=== PATIENT | female | born 1975 | race African-American/Black ===

== ENCOUNTER 2018-01-22 06:43 | Emergency (ER) | payer MEDICARE, MEDICAID ==
[2018-01-22] MEDS: NORCO, ANEXSIA 5/325MG TABLET (HYDROcodone/ACETAMINOPHEN) PO (07:52)
== END 2018-01-22 08:50 | disposition home or self-care (01) ==
LOC: M ED 06:43
DX: I10 Essential (primary) hypertension (principal); Z88.0 Allergy status to penicillin
CPT/HCPCS: 73060

== ENCOUNTER 2018-03-13 13:37 | Outpatient (RCR) | payer MEDICARE | END 2018-03-30 | LOC: M PT 13:37 | DX: Z51.89 Encounter for other specified aftercare (principal); M54.12 Radiculopathy, cervical region; M50.30 Other cervical disc degeneration, unspecified cervical region; M50.20 Other cervical disc displacement, unspecified cervical region | CPT/HCPCS: 97110 ==

== ENCOUNTER 2018-04-05 12:35 | Outpatient (RCR) | payer MEDICARE | END 2018-04-29 | LOC: M PT 12:35 | DX: Z47.89 Encounter for other orthopedic aftercare (principal); M54.12 Radiculopathy, cervical region; M50.30 Other cervical disc degeneration, unspecified cervical region; M50.20 Other cervical disc displacement, unspecified cervical region | CPT/HCPCS: 97110 ==

== ENCOUNTER → 2019-05-30 | Outpatient (REF) | payer MEDICARE ==
[~2019-05-30] MED LIST: ALPR2TAB3 PO; HYDR-3715 PO
[2019-05-30 19:50] LABS: CHLAMYDIA DNA AMPLIFICATION NEGATIVE (NEGATIVE); GC DNA AMPLIFICATION NEGATIVE (NEGATIVE)
[2019-06-02 14:07] LABS: HPV HYBRID CAPTURE II Negative (Negative)
== END ==
LOC: M LAB REF 17:05
PROVIDERS: ATTEND Advanced Practice Midwife
DX: Z11.3 Encounter for screening for infections with a predominantly sexual mode of transmission (principal); Z12.4 Encounter for screening for malignant neoplasm of cervix
CPT/HCPCS: 87624; 87661; G0123

== ENCOUNTER → 2019-06-06 | Outpatient (REF) | payer MEDICARE ==
[2019-06-06 10:10] LABS: HEMATOCRIT 35.2 % (36.0-47.0); HEMOGLOBIN 10.8 g/dl (12.0-15.5); MEAN CORPUSCULAR HEMOGLOBIN 21.9 pg (27.0-33.0); MEAN CORPUSCULAR HGB CONC 30.7 g/dl (32.0-36.5); MEAN CORPUSCULAR VOLUME 71.3 fl (80.0-96.0); PLATELET COUNT, AUTOMATED 586 10^3/uL (150-450); RED BLOOD COUNT 4.94 10^6/uL (4.00-5.40); WHITE BLOOD COUNT 10.1 10^3/uL (4.0-10.0)
[2019-06-06 10:46] LABS: FREE T4 1.02 NG/DL (0.76-1.46)
[2019-06-07 06:30] LABS: HIV 1&2 SCREEN CENTAUR NEGATIVE (NEGATIVE)
== END ==
LOC: M LABDRAWP 08:40
PROVIDERS: ATTEND Advanced Practice Midwife
DX: N92.0 Excessive and frequent menstruation with regular cycle (principal); Z11.3 Encounter for screening for infections with a predominantly sexual mode of transmission

== ENCOUNTER → 2019-06-06 | Outpatient (CLI) | payer MEDICARE ==
--- NOTE | 2019-06-06 09:40 | REPMRS ---
Patient History The patient states she had a clinical breast exam in 04/2019. Family history of breast cancer at age 50 or over in maternal grandmother. No Hormone Replacement Therapy 3D TOMOSYNTHESIS WAS PERFORMED. [facility] lifetime risk for breast cancer is 13.5%. Digital Woman Screen Mammo: June 06, 2019 - Exam #: [id number] Bilateral CC and MLO view(s) were taken. Technologist: Leigh Zhang, Technologist No prior studies available for comparison. FINDINGS: The breast tissue is extremely dense which could obscure a lesion on mammography. There is no evidence of cancer on this mammogram. Assessment: BI-RADS/ACR category 2 mammogram. Benign Findings. Recommendation Routine screening mammogram of both breasts in 1 year (for women over age 40). This mammogram was interpreted with the aid of an FDA-approved computer-aided dectection system. Electronically Signed By: Lalo Caballero MD 06/06/19 0903
== END ==
LOC: M WHC 08:08
PROVIDERS: ATTEND Nurse Practitioner Family
DX: Z12.31 Encounter for screening mammogram for malignant neoplasm of breast (principal); N92.0 Excessive and frequent menstruation with regular cycle; Z11.3 Encounter for screening for infections with a predominantly sexual mode of transmission; Z80.3 Family history of malignant neoplasm of breast

== ENCOUNTER → 2019-08-04 | Outpatient (CLI) | payer MEDICARE ==
[2019-08-04 18:30] LABS: ALBUMIN 3.7 GM/DL (3.2-5.2); ALT/SGPT 12 U/L (12-78); BILIRUBIN,TOTAL 0.4 MG/DL (0.2-1.0); BLOOD UREA NITROGEN 7 MG/DL (7-18); CALCIUM LEVEL 8.9 MG/DL (8.5-10.1); CARBON DIOXIDE LEVEL 26 MEQ/L (21-32); CHLORIDE LEVEL 110 MEQ/L (98-107); CHOLESTEROL LEVEL 129 MG/DL (<200); CHOLESTEROL RISK RATIO 3.486 (<5); CREATININE FOR GFR 0.79 MG/DL (0.55-1.30); FREE T4 1.03 NG/DL (0.76-1.46); GLOMERULAR FILTRATION RATE > 60.0 (>58); GLUCOSE, FASTING 89 MG/DL (70-100); HDL CHOLESTEROL 37 MG/DL (>40); LDL CHOLESTEROL 70 MG/DL (<100); NON-HDL-C 92 MG/DL; POTASSIUM SERUM 4.5 MEQ/L (3.5-5.1); SODIUM LEVEL 142 MEQ/L (136-145); THYROID STIMULATING HORMONE 0.906 uIU/ML (0.358-3.740); TRIGLYCERIDES LEVEL 109 MG/DL (<150)
[2019-08-04 19:01] LABS: HEMOGLOBIN A1c 5.5 %
[2019-08-06 11:19] LABS: VITAMIN B12 LEVEL 568 PG/ML (247-911)
== END ==
LOC: M WUC 08:13
PROVIDERS: ATTEND Nurse Practitioner Family
DX: Z00.00 Encounter for general adult medical examination without abnormal findings (principal); E07.9 Disorder of thyroid, unspecified; E78.00 Pure hypercholesterolemia, unspecified

== ENCOUNTER → 2021-08-04 | Outpatient (CLI) | payer MEDICARE, MEDICAID ==
[2021-08-04 13:37] LABS: BASO # 0.1 10^3/uL (0.0-0.2); EOS # 0.2 10^3/uL (0.0-0.5); EOS % 2.3 % (0.0-3.0); HEMATOCRIT 38.2 % (36.0-47.0); HEMOGLOBIN 12.4 g/dl (12.0-15.5); LYMPH # 2.2 10^3/uL (1.5-5.0); LYMPH % 23.1 % (24.0-44.0); MEAN CORPUSCULAR HEMOGLOBIN 27.9 pg (27.0-33.0); MEAN CORPUSCULAR HGB CONC 32.5 g/dl (32.0-36.5); MONO # 0.7 10^3/uL (0.0-0.8); MONO % 6.8 % (2.0-8.0); NEUTROPHILS # 6.3 10^3/uL (1.5-8.5); NEUTROPHILS % 66.3 % (36.0-66.0); PLATELET COUNT, AUTOMATED 437 10^3/uL (150-450); RED BLOOD COUNT 4.44 10^6/uL (4.00-5.40); WHITE BLOOD COUNT 9.5 10^3/uL (4.0-10.0)
[2021-08-04 17:45] LABS: ALBUMIN 3.6 GM/DL (3.2-5.2); ALT/SGPT 16 U/L (12-78); BILIRUBIN,TOTAL 0.4 MG/DL (0.2-1.0); BLOOD UREA NITROGEN 10 MG/DL (7-18); CARBON DIOXIDE LEVEL 27 MEQ/L (21-32); CHLORIDE LEVEL 111 MEQ/L (98-107); CHOLESTEROL LEVEL 168 MG/DL (<200); GLOMERULAR FILTRATION RATE > 60.0 (>58); GLUCOSE, FASTING 83 MG/DL (70-100); HDL CHOLESTEROL 56 MG/DL (>40); LDL CHOLESTEROL 99 MG/DL (<100); NON-HDL-C 112 MG/DL; POTASSIUM SERUM 4.3 MEQ/L (3.5-5.1); SODIUM LEVEL 141 MEQ/L (136-145); TOTAL 25(OH) VITAMIN D 34.7 NG/ML (30.0-100.0); TOTAL PROTEIN 6.6 GM/DL (6.4-8.2); TRIGLYCERIDES LEVEL 64 MG/DL (<150)
== END ==
LOC: M PLALAB 10:29
PROVIDERS: ATTEND Nurse Practitioner Family
DX: E55.9 Vitamin D deficiency, unspecified (principal); F41.1 Generalized anxiety disorder; Z13.1 Encounter for screening for diabetes mellitus; Z13.220 Encounter for screening for lipoid disorders; Z79.899 Other long term (current) drug therapy
CPT/HCPCS: 36415; 80053; 80061; 82306; 83036; 84439; 84443; 85025; G0463

== ENCOUNTER → 2024-11-02 | Outpatient (REF) | payer MEDICARE, MEDICAID ==
[2024-11-02 13:50] LABS: HEMATOCRIT 34.4 % (36.0-47.0); HEMOGLOBIN 10.8 g/dl (12.0-15.5); MEAN CORPUSCULAR HEMOGLOBIN 24.1 pg (27.0-33.0); MEAN CORPUSCULAR HGB CONC 31.4 g/dl (32.0-36.5); MEAN CORPUSCULAR VOLUME 76.8 fl (80.0-96.0); PLATELET COUNT, AUTOMATED 413 10^3/uL (150-450); RED BLOOD COUNT 4.48 10^6/uL (4.00-5.40)
[2024-11-02 14:11] LABS: HEMOGLOBIN A1c 5.2 % (4.0-6.0)
[2024-11-02 14:17] LABS: ALBUMIN 3.7 G/DL (3.2-5.2); ALKALINE PHOSPHATASE 61 U/L (35-104); ALT/SGPT 27 U/L (7.0-40); AST/SGOT 22 U/L (<34); BILIRUBIN,TOTAL 0.7 MG/DL (0.3-1.2); BLOOD UREA NITROGEN 8 MG/DL (9-23); CARBON DIOXIDE LEVEL 23 MMOL/L (20-31); CHLORIDE LEVEL 111 MMOL/L (98-107); CHOLESTEROL LEVEL 165 MG/DL (<200); CHOLESTEROL RISK RATIO 2.83 (<5); CREATININE FOR GFR 0.66 MG/DL (0.55-1.30); GLOMERULAR FILTRATION RATE > 60.0 (>58); GLUCOSE, FASTING 81 MG/DL (60-100); HDL CHOLESTEROL 58.2 MG/DL (>40); LDL CHOLESTEROL 91.8 MG/DL (<100); NON-HDL-C 106.8 MG/DL; POTASSIUM SERUM 4.4 MMOL/L (3.5-5.1); SODIUM LEVEL 142 MMOL/L (136-145); TRIGLYCERIDES LEVEL 75 MG/DL (<150)
[2024-11-02 14:18] LABS: THYROID STIMULATING HORMONE 3.072 uIU/ML (0.55-4.78); TOTAL 25(OH) VITAMIN D 55.2 NG/ML (20.0-100.0)
== END ==
LOC: M LAB REF 12:00
PROVIDERS: ATTEND Student in an Organized Health Care Education/Training Program
DX: Z00.01 Encounter for general adult medical examination with abnormal findings (principal)

== ENCOUNTER → 2024-12-05 | Outpatient (CLI) | payer MEDICARE, MEDICAID | LOC: M WHC 07:45 | PROVIDERS: ATTEND Student in an Organized Health Care Education/Training Program | DX: N63.21 Unspecified lump in the left breast, upper outer quadrant (principal); N60.02 Solitary cyst of left breast | CPT/HCPCS: 76642; 77066; G0279 ==

== ENCOUNTER → 2024-12-20 | Outpatient (CLI) | payer MEDICARE, MEDICAID ==
[2024-12-20 08:22] VITALS: BP 212/108; TEMP 100; O2SAT 100
== END ==
LOC: M WHCPRO 08:36
PROVIDERS: ATTEND Student in an Organized Health Care Education/Training Program
DX: N63.20 Unspecified lump in the left breast, unspecified quadrant (principal); Z53.9 Procedure and treatment not carried out, unspecified reason

== ENCOUNTER → 2025-02-11 | Outpatient (REF) | payer MEDICARE, MEDICAID ==
[2025-02-11 18:28] LABS: PERCENT SATURATION 3.2 % (13.2-45.0)
[2025-02-11 18:31] LABS: FERRITIN 6.8 NG/ML (7.3-270.7)
[2025-02-11 18:53] LABS: BASO # 0.1 10^3/uL (0.0-0.2); BASO % 1.2 % (0.0-1.0); EOS # 0.3 10^3/uL (0.0-0.5); EOS % 3.1 % (0.0-3.0); HEMATOCRIT 37.3 % (36.0-47.0); HEMOGLOBIN 11.7 g/dl (12.0-15.5); LYMPH # 2.6 10^3/uL (1.5-5.0); LYMPH % 28.4 % (24.0-44.0); MEAN CORPUSCULAR HEMOGLOBIN 23.9 pg (27.0-33.0); MEAN CORPUSCULAR HGB CONC 31.4 g/dl (32.0-36.5); MEAN CORPUSCULAR VOLUME 76.1 fl (80.0-96.0); MONO # 0.7 10^3/uL (0.0-0.8); MONO % 7.7 % (2.0-8.0); NEUTROPHILS # 5.4 10^3/uL (1.5-8.5); NEUTROPHILS % 59.4 % (36.0-66.0); PLATELET COUNT, AUTOMATED 424 10^3/uL (150-450); WHITE BLOOD COUNT 9.1 10^3/uL (4.0-10.0)
== END ==
LOC: M LAB REF 17:36
PROVIDERS: ATTEND Student in an Organized Health Care Education/Training Program
DX: D64.9 Anemia, unspecified (principal)

== ENCOUNTER → 2025-05-06 | Outpatient (CLI) | payer MEDICARE, MEDICAID | LOC: M WHC 11:50 | PROVIDERS: ATTEND Nurse Practitioner Family | DX: D25.9 Leiomyoma of uterus, unspecified (principal); N88.8 Other specified noninflammatory disorders of cervix uteri; R10.2 Pelvic and perineal pain; N93.9 Abnormal uterine and vaginal bleeding, unspecified ==

== ENCOUNTER → 2025-06-12 | Outpatient (CLI) | payer MEDICARE, MEDICAID ==
[2025-06-12 07:44] VITALS: BP 156/90; TEMP 98.8; O2SAT 100
== END ==
LOC: M WHCPRO 07:40
PROVIDERS: ATTEND Student in an Organized Health Care Education/Training Program
DX: N63.20 Unspecified lump in the left breast, unspecified quadrant (principal); Z53.9 Procedure and treatment not carried out, unspecified reason

== ENCOUNTER → 2025-07-04 | Outpatient (REF) | payer MEDICARE, MEDICAID | LOC: M SFHCWAGY 15:24 | PROVIDERS: ATTEND Student in an Organized Health Care Education/Training Program | DX: Z12.4 Encounter for screening for malignant neoplasm of cervix (principal); Z77.9 Other contact with and (suspected) exposures hazardous to health ==

== ENCOUNTER → 2025-08-21 | Outpatient (REF) | payer MEDICARE, MEDICAID | LOC: M PLALAB 16:54 | PROVIDERS: ATTEND Student in an Organized Health Care Education/Training Program | DX: N92.6 Irregular menstruation, unspecified (principal) ==